=== PATIENT | male | born 1980 | race African-American/Black ===

== ENCOUNTER 2017-05-01 23:33 | Emergency (ER) | payer SELFPAY ==
[~2017-05-01] VITALS: Ht 182.9 cm; Wt 82.0 kg
[2017-05-01 23:39] VITALS: Ht 182.9 cm; Wt 82.0 kg
[2017-05-01] MEDS ORDERED: predniSONE 20 MG TAB PO STA (23:56)
[2017-05-01] MEDS ORDERED: IPRATROPIUM (NEB) 0.5 MG/2.5 ML AMP INH STA (23:56)
[2017-05-01] MEDS ORDERED: ALBUTEROL 0.5% (NEB) 2.5 MG/0.5 ML AMP INH STA (23:56)
[2017-05-02 00:02] VITALS: TEMP 97
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
[2017-05-02 01:00] VITALS: BP 121/83; PULSE 58; RESP 19
[2017-05-02] MEDS ORDERED: ALBU8.5H3 INH (01:00)
[2017-05-02] MEDS ORDERED: PRED20TA PO (01:00)
== END 2017-05-02 02:25 | disposition home or self-care (01) ==
LOC: E/R 23:33
DX: J45.901 Unspecified asthma with (acute) exacerbation (principal); R40.2252 Coma scale, best verbal response, oriented, at arrival to emergency department
CPT/HCPCS: 94644; 99284; J7512